=== PATIENT | female | born 1945 | race Caucasian/White ===

== ENCOUNTER 2019-03-29 14:21 | Emergency (ER) | payer BC ==
[~2019-03-29] VITALS: Ht 160 cm; Wt 63.5 kg
[2019-03-29 14:21] VITALS: BP_SYST 138
--- NOTE | 2019-03-29 14:22 | NUR ---
BROUGHT IN BY [facility] AND PLACED IN BED #4, TRIAGED. REPORT GIVEN TO NEFTALY
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
--- NOTE | 2019-03-29 14:35 | NUR ---
ARNAUD Reddy at bedside examining patient.
[2019-03-29] MEDS ORDERED: ONDANSETRON HCL 4 MG/2 ML VIAL IVP ONE (14:45)
[2019-03-29] MEDS ORDERED: MORPHINE 4 MG/ML INJ. SYRINGE IVP ONE (14:45)
--- NOTE | 2019-03-29 14:55 | NUR ---
Patient politely refused IV and request pain medication PO or Im, made Dr. Reddy aware
[2019-03-29] MEDS ORDERED: HYDROcodone/ACETAMIN 5-325 MG TAB (NORCO/ VICODIN) PO ONE (15:00)
--- NOTE | 2019-03-29 15:00 | NUR ---
Patient to CT via [facility]
--- NOTE | 2019-03-29 15:14 | NUR ---
RETURNED FROM RADIOLOGY AND PLACED BACK TO BED #4 SAFELY
[2019-03-29 16:20] VITALS: BP_SYST 140
--- NOTE | 2019-03-29 16:40 | NUR ---
Patient given written and verbal discharge instructions and verbalizes understanding. ER MD discussed with patient the results and treatment provided. Patient in stable condition. ID arm band removed. Rx of extrastrength tylenol given. Patient educated on pain management and to follow up with PMD. Pain Scale3/10 tolerable for patient . Opportunity for questions provided and answered. Medication side effect fact sheet provided.
--- NOTE | 2019-03-29 16:40 | NUR ---
Note undone in EDM - 03/29/19 at 1650 by SDEDTD Patient given written and verbal discharge instructions and verbalizes understanding. ER discussed with patient the results and treatment provided. Patient in stable condition. ID arm band removed. IV catheter removed intact and dressing applied, no active bleeding. Rx of Tylenol extrastrength given. Patient educated on pain management and to follow up with PMD. Pain Scale 3/10 tolerable for patient. Opportunity for questions provided and answered. Medication side effect fact sheet provided.
== END 2019-03-29 16:40 | disposition home or self-care (01) ==
LOC: SED 14:21
DX: S00.03XA Contusion of scalp, initial encounter (principal); V47.5XXA Car driver injured in collision with fixed or stationary object in traffic accident, initial encounter; Y93.89 Activity, other specified; Y92.488 Other paved roadways as the place of occurrence of the external cause; Y99.8 Other external cause status
CPT/HCPCS: 70450-TC; 99284; J2270; J2405